=== PATIENT | female | born 1945 | race Caucasian/White ===

== ENCOUNTER 2017-09-11 15:25 | Observation (INO) | payer OTHER ==
[~2017-09-11] VITALS: Ht 167.6 cm; Wt 72.6 kg
[2017-09-11] MEDS ORDERED: Acid Controller20 MG PO (15:40)
[2017-09-11] MEDS ORDERED: CALCIUM CITRAT480 GM PO (15:40)
[2017-09-11] MEDS ORDERED: GLUC500 PO (15:54)
[2017-09-11] MEDS ORDERED: Advair Hfa 230-12 GM (15:54)
[2017-09-11] MEDS ORDERED: HYDR1TAB94 PO (15:55)
[2017-09-11] MEDS ORDERED: CLARITIN10 MG PO (15:56)
[2017-09-11] MEDS ORDERED: Hair, Skin & N1 EACH PO (15:57)
[2017-09-11] MEDS ORDERED: ONDA4 PO (15:57)
[2017-09-12] MEDS ORDERED: Norco 10-325 T1 EACH PO (17:06)
== END 2017-09-12 18:41 | disposition home or self-care (01) ==
LOC: ER 15:25 → SURS 15:26
PROVIDERS: Surgery
PROC: 0FT44ZZ Resection of Gallbladder, Percutaneous Endoscopic Approach (ICD-10-PCS; principal; 2017-09-12 14:25)
DX: K80.12 Calculus of gallbladder with acute and chronic cholecystitis without obstruction (principal); R94.5 Abnormal results of liver function studies; D72.819 Decreased white blood cell count, unspecified; J30.2 Other seasonal allergic rhinitis; Z88.0 Allergy status to penicillin; Z98.890 Other specified postprocedural states; Z90.710 Acquired absence of both cervix and uterus; Z98.51 Tubal ligation status
CPT/HCPCS: 86850; 86900; 86901; 88304; 99285; C1729; G0378; J0744; J1100; J1885; J2250; J2405; J2710; J3010; J7030; J7120; Q0163